=== PATIENT | male | born 1995 | race Caucasian/White ===

== ENCOUNTER 2016-07-03 14:26 | Emergency (ER) | payer OTHER ==
[~2016-07-03] VITALS: Ht 182.9 cm; Wt 62.1 kg
[2016-07-03 14:28] VITALS: BP 122/79
[2016-07-03] MEDS ORDERED: DEXAMETHASONE 4 MG TABLET ONE (15:05)
[2016-07-03] MEDS ORDERED: MAALOX/HYOSCYAMINE/LIDOCAINE 45 ML BOTTLE ONE (15:05)
[2016-07-03] MEDS ORDERED: DEXAMETHASONE 4 MG TABLET PO ONE (16:00)
[2016-07-03] MEDS ORDERED: MAALOX/HYOSCYAMINE/LIDOCAINE 45 ML BOTTLE PO ONE (16:00)
== END 2016-07-03 15:49 | disposition home or self-care (01) ==
LOC: ED 15:35
DX: H66.002 Acute suppurative otitis media without spontaneous rupture of ear drum, left ear (principal); J02.0 Streptococcal pharyngitis
CPT/HCPCS: 99283

== ENCOUNTER 2016-10-29 03:11 | Emergency (ER) | payer OTHER ==
[~2016-10-29] VITALS: Ht 188 cm; Wt 65.0 kg
[2016-10-29 03:17] VITALS: BP 116/79
[2016-10-29] MEDS ORDERED: IBUPROFEN 200 MG TABLET ONE (03:39)
[2016-10-29] MEDS ORDERED: IBUPROFEN 200 MG TABLET PO ONE (04:00)
== END 2016-10-29 04:19 | disposition home or self-care (01) ==
LOC: ED 03:55
DX: J02.9 Acute pharyngitis, unspecified (principal); B34.9 Viral infection, unspecified; Z88.0 Allergy status to penicillin; Z88.5 Allergy status to narcotic agent; Z88.8 Allergy status to other drugs, medicaments and biological substances
CPT/HCPCS: 87081; 87880; 99284

== ENCOUNTER 2017-01-23 11:03 | Emergency (ER) | payer SELFPAY ==
[~2017-01-23] VITALS: Ht 190.5 cm; Wt 63.3 kg
[2017-01-23 11:05] VITALS: BP 111/77
[2017-01-23] MEDS ORDERED: DEXAMETHASONE 4 MG/ML, 5ML ONE (12:27)
[2017-01-23] MEDS ORDERED: DEXAMETHASONE 4 MG/ML, 1ML PO ONE (12:30)
== END 2017-01-23 12:41 | disposition home or self-care (01) ==
LOC: ED 12:00
DX: N30.90 Cystitis, unspecified without hematuria (principal); J00 Acute nasopharyngitis [common cold]
CPT/HCPCS: 71020; 81001; 87086; 99285; J1100

== ENCOUNTER 2017-07-03 08:19 | Emergency (ER) | payer SELFPAY ==
[~2017-07-03] VITALS: Ht 188 cm; Wt 62.0 kg
[2017-07-03 08:21] VITALS: BP 136/80
[2017-07-03] MEDS ORDERED: FLUORESCEIN OPHTHALMIC 1 MG STRIP ONE (08:38)
[2017-07-03] MEDS ORDERED: PROPARACAINE OPHTH 0.5%, 15ML ONE (08:38)
== END 2017-07-03 10:16 | disposition home or self-care (01) ==
LOC: ED 09:20
DX: S05.02XA Injury of conjunctiva and corneal abrasion without foreign body, left eye, initial encounter (principal); X58.XXXA Exposure to other specified factors, initial encounter; Y93.89 Activity, other specified; Y92.89 Other specified places as the place of occurrence of the external cause; Y99.8 Other external cause status
CPT/HCPCS: 99283

== ENCOUNTER 2018-02-07 07:21 | Emergency (ER) | payer SELFPAY ==
[~2018-02-07] VITALS: Ht 182.9 cm; Wt 64.0 kg
[2018-02-07] MEDS ORDERED: METOCLOPRAMIDE 5 MG/ML, 2ML ONE (07:40)
[2018-02-07] MEDS ORDERED: KETOROLAC 30 MG/1 ML ONE (07:40)
[2018-02-07] MEDS ORDERED: FAMOTIDINE 20 MG/2 ML ONE (07:41)
[2018-02-07] MEDS ORDERED: SODIUM CHLORIDE 0.9% 1,000ML IVBOLUS ONE (08:00)
[2018-02-07] MEDS ORDERED: KETOROLAC 30 MG/1 ML IVPush ONE (08:00)
[2018-02-07] MEDS ORDERED: METOCLOPRAMIDE 5 MG/ML, 2ML IVPush ONE (08:00)
[2018-02-07] MEDS ORDERED: FAMOTIDINE 20 MG/2 ML IVP ONE (08:00)
[2018-02-07 08:04] LABS: BASOPHILS # (AUTO) 0.02 x10^3/uL (0-0.1); BASOPHILS % (AUTO) 0 % (0-1); EOSINOPHILS # (AUTO) 0.01 x10^3/uL (0-0.4); EOSINOPHILS % (AUTO) 0 % (1-7); LYMPHOCYTES # (AUTO) 0.33 x10^3/uL (1-3.4); LYMPHOCYTES % (AUTO) 2 % (22-44); MD NO; MEAN CORPUSCULAR HEMOGLOBIN 33.3 pg (27.5-34.5); MEAN CORPUSCULAR HGB CONC 34.1 g/dL (33.2-36.2); MEAN CORPUSCULAR VOLUME 97.8 fL (81-97); MEAN PLATELET VOLUME 8.3 fL (7.4-10.4); MONOCYTES # (AUTO) 0.57 x10^3/uL (0.2-0.8); MONOCYTES % (AUTO) 4 % (2-9); NEUTROPHILS # (AUTO) 13.75 x10^3/uL (1.8-6.8); NEUTROPHILS % (AUTO) 94 % (42-75); PLATELET COUNT 112 x10^3/uL (130-400); RED CELL DISTRIBUTION WIDTH 13.4 % (9.4-14.8)
[2018-02-07 08:12] LABS: ALANINE AMINOTRANSFERASE 35 U/L (12-78); ALBUMIN 4.2 g/dL (3.4-5.0); ANION GAP 8 mmol/L (5-15); CALCIUM 8.7 mg/dL (8.5-10.1); CHLORIDE 109 mmol/L (98-107); CREATININE 1.23 mg/dL (0.7-1.3)
[2018-02-07 08:14] LABS: ALKALINE PHOSPHATASE 201 U/L (45-117); BILIRUBIN,TOTAL 2.6 mg/dL (0.2-1.0); TOTAL PROTEIN 7.2 g/dL (6.4-8.2)
[2018-02-07 08:53] VITALS: BP 100/47
== END 2018-02-07 10:09 | disposition home or self-care (01) ==
LOC: ED 09:39
DX: K52.9 Noninfective gastroenteritis and colitis, unspecified (principal); F17.210 Nicotine dependence, cigarettes, uncomplicated; F12.10 Cannabis abuse, uncomplicated; R45.851 Suicidal ideations; Z87.19 Personal history of other diseases of the digestive system
CPT/HCPCS: 36415; 80053; 85025; 96361; 96374; 96375; 99283; J1885; J2765; J3490; J7030

== ENCOUNTER 2018-09-08 03:13 | Emergency (ER) | payer SELFPAY ==
[~2018-09-08] VITALS: Ht 185.4 cm; Wt 65.0 kg
--- NOTE | 2018-09-08 03:35 | NUR ---
PLEASANT YOUNG MAN BIBA FROM HOME, DRANK LARGE AMOUNT "RED HOTS AND WATERMELON VODKA" THEN BEGAN VOMITING, FRIENDS CONCERNED AND CALLED 911. PT AA AND O TIMES 4 UPON ARRIVAL, FEELING BETTER.
[2018-09-08] MEDS ORDERED: NAPR-856 PO (03:38)
[2018-09-08] MEDS ORDERED: CYCL-259 PO (03:38)
--- NOTE | 2018-09-08 03:38 | NUR ---
PT HAD VISITORS WHO HAVE COME AND GONE, CALL ESPINOZA IN REACH AND AWARE OF USE
--- NOTE | 2018-09-08 03:44 | NUR ---
FRIENDS AT BEDSIDE
--- NOTE | 2018-09-08 04:16 | NUR ---
AWAKEN VERBAL, AWAIT SOBRIETY FOR SAFE DISCHARGE.
[2018-09-08 04:17] VITALS: BP 116/70
== END 2018-09-08 05:56 | disposition home or self-care (01) ==
LOC: ED 05:32
DX: F10.120 Alcohol abuse with intoxication, uncomplicated (principal); R11.2 Nausea with vomiting, unspecified; F17.200 Nicotine dependence, unspecified, uncomplicated
CPT/HCPCS: 99283

== ENCOUNTER 2019-01-17 15:20 | Emergency (ER) | payer SELFPAY ==
[~2019-01-17] VITALS: Ht 188 cm; Wt 68.0 kg
[~2019-01-17 15:20] MED LIST: CYCL-259 PO; NAPR-856 PO
[2019-01-17 15:32] VITALS: BP 141/73
[2019-01-17] MEDS ORDERED: KETOROLAC 30 MG/1 ML ONE (15:59)
[2019-01-17] MEDS ORDERED: KETOROLAC 30 MG/1 ML IM ONE (16:00)
== END 2019-01-17 16:58 | disposition home or self-care (01) ==
LOC: ED 16:06
DX: G89.29 Other chronic pain (principal); M25.551 Pain in right hip; F17.210 Nicotine dependence, cigarettes, uncomplicated; Z72.9 Problem related to lifestyle, unspecified
CPT/HCPCS: 96372; 99283; J1885